=== PATIENT | male | born 1985 | race Caucasian/White ===

== ENCOUNTER 2016-09-28 10:59 | Inpatient (IN) | payer BC, OTHER ==
[~2016-09-28] VITALS: Ht 172.7 cm; Wt 63.5 kg
[2016-09-29] VITALS (7 sets, daily range): BP systolic 134–171; BP diastolic 88–105
--- NOTE | 2016-09-29 02:10 | NUR ---
INTAKE ASSESSMENT BP:171/90, HR: 86, RR:16, SpO2:95%, T:98 Pt is in stable condition and is able to be admitted on the unit. Unit protocols regarding medications, and vital signs every 4 hours were explained. Pt verbalized understanding. Will continue admission process upon arrival on the unit.
--- NOTE | 2016-09-29 02:35 | NUR ---
ADMISSION NOTE CIWA:5. Pt arrived ambulatory from [facility] Intake to the third floor accompanied by a CHEMICAL OPERATOR at 0215. Pt is a 30 year old male who was admitted on 09/29/16 for ETOH dependency. Pt is full code with NKA. He denies any PMHx of seizure. Pt reports a PMHx of anxiety and HTN. Pt denies having a PCP. Pt brought home medications of: 1. Amoxicillin 500 mg capsule TID for abscess of left upper tooth. Pt verbalized that he is here for ETOH withdrawal. This is his first time in detox and is unable to recall the last time he was sober. Pt reports he was in [facility] ER for ETOH intoxication within the last 30 days. He describes his current use as: 1. ETOH vodka 1 /2 gallon daily for 15 years. Last dose: 1500mL on 09/28/16 Pt describes his withdrawal symptoms as: " tremors and nausea " Upon assessment, pt is alert and oriented x4, anxious and cooperative. Speech is clear and audible. Heart rate is regular. Pt denies chest pain or SOB. PERRLA, breathing is even and unlabored, lung sounds clear. Abdomen is soft and non distended, bowel sounds present in all quadrants. Last BM was 09/28/16. Pt reports that BM is regular. Pt's skin is warm, dry and intact. Pt oriented to room and unit. made aware of pt's admission. Pt is safe with bed locked in lowest position, side rails up x2 and call light within reach. Will continue to monitor.
[2016-09-29] MEDS ORDERED: DICYCLOMINE HCL 20 MG TABLET PO PRN (03:00)
[2016-09-29] MEDS ORDERED: LOPERAMIDE HCL 2 MG CAPSULE PO PRN ×2 (03:00)
[2016-09-29] MEDS ORDERED: MAG HYDROX/AL HYDROX/SIMETH 30 ML LIQUID UDC PO PRN (03:00)
[2016-09-29] MEDS ORDERED: IBUPROFEN 400 MG TABLET PO PRN (03:00)
[2016-09-29] MEDS ORDERED: MAGNESIUM HYDROXIDE 30 ML LIQUID UDC PO PRN (03:00)
[2016-09-29] MEDS ORDERED: THIAMINE HCL 200 MG/2 ML VIAL IM ONE (03:00)
[2016-09-29] MEDS ORDERED: LORAZEPAM 2 MG/1 ML VIAL IM PRN (03:00)
[2016-09-29] MEDS ORDERED: MIRALAX 17 GM POWD.PACK PO PRN (03:00)
[2016-09-29] MEDS ORDERED: ONDANSETRON 4 MG/2 ML VIAL IM PRN (03:00)
[2016-09-29] MEDS ORDERED: LORAZEPAM 1 MG TABLET PO PRN ×2 (03:00)
[2016-09-29] MEDS ORDERED: AMOX500C2 PO (03:02)
[2016-09-29] MEDS ORDERED: THIAMINE HCL 200 MG/2 ML VIAL ONE (03:12)
[2016-09-29] MEDS ORDERED: CLONIDINE HCL 0.1 MG TABLET ONE (03:13)
[2016-09-29] MEDS: CLONIDINE HCL 0.1 MG TABLET PO PRN ×2 (03:33→08:57)
--- NOTE | 2016-09-29 03:33 | NUR ---
PRN CLONIDINE Pt complains of anxiety, chills, sweats and pt is also noted with increased BP of 150/105. PRN Clonidine administered as ordered. Breathing is even and unlabored. Safety measures in place. Will monitor effectiveness of medication.
[2016-09-29 03:48] LABS: ALANINE AMINOTRANSFERASE 28 U/L (16-63); ALKALINE PHOSPHATASE 94 U/L (50-136); AMYLASE 77 U/L (25-115); ASPARTATE AMINOTRANSFERASE 31 U/L (15-37); BILIRUBIN,TOTAL 0.5 mg/dL (0.2-1.0); CARBON DIOXIDE 25 mmol/L (21-32); CHLORIDE 102 mmol/L (98-107); CREATININE 0.9 mg/dL (0.6-1.3); GLUCOSE 99 mg/dL (74-106); LIPASE 289 U/L (73-393); MAGNESIUM 1.5 mg/dL (1.8-2.4); POTASSIUM 3.6 mmol/L (3.5-5.1); TOTAL PROTEIN, SERUM 7.6 g/dL (6.4-8.2); UREA NITROGEN, BLOOD 14 mg/dL (7-18)
[2016-09-29 03:55] LABS: THYROID STIMULATING HORMONE 1.373 mIU/mL (0.358-3.740)
[2016-09-29 04:00] LABS: BASOPHILS # (AUTO) 0.1 K/uL (0.0-8.0); BASOPHILS % (AUTO) 1.2 % (0.0-2.0); EOSINOPHILS # (AUTO) 0.1 K/uL (0.0-0.7); EOSINOPHILS % (AUTO) 1.2 % (0.0-7.0); ETHANOL < 3 MG/DL (0-0); HEMATOCRIT 39.6 % (40-50); HEMOGLOBIN 13.9 G/DL (14.0-18.0); LYMPHOCYTES # (AUTO) 1.1 K/UL (0.8-4.8); MEAN CORPUSCULAR HEMOGLOBIN 32.8 UUG (27.0-31.0); MEAN CORPUSCULAR HGB CONC 35 g/dL (32.0-37.0); MEAN CORPUSCULAR VOLUME 93.5 FL (82.0-92.0); MONOCYTES # (AUTO) 0.6 K/UL (0.1-1.30); MONOCYTES % (AUTO) 12.4 % (0.0-11.0); NEUTROPHILS # (AUTO) 2.9 K/UL (1.8-8.9); NEUTROPHILS % (AUTO) 62.2 % (38.5-71.5); PLATELET COUNT (AUTO) 314 K/UL (150-450); RED BLOOD CELL COUNT(AUTO) 4.24 MIL/UL (4.7-6.1); WHITE BLOOD COUNT (AUTO) 4.8 K/UL (4.0-11.2)
[2016-09-29 04:04] LABS: *AMPHETAMINE, URINE NEGATIVE (NEGATIVE); *BARBITURATE, URINE NEGATIVE (NEGATIVE); *CANNABINOID, URINE NEGATIVE (NEGATIVE); *COCCAINE, URINE NEGATIVE (NEGATIVE); *OPIATE, URINE NEGATIVE (NEGATIVE); *PHENCYCLIDINE SCREEN,URINE NEGATIVE (NEGATIVE)
--- NOTE | 2016-09-29 04:33 | NUR ---
PRN CLONIDINE REASSESSMENT PRN medication is effective. Pt is lying in bed with eyes closed resting comfortably. BP decreased 147/90. HR:78. Safety measures in place. Will continue to monitor.
--- NOTE | 2016-09-29 07:05 | NUR ---
END OF SHIFT Pt is a 30 year old male patient admitted on 09/29/16 for ETOH dependency. Pt is full code with NKA. He reports a PMHx of anxiety and HTN. He reports ETOH (vodka) 1/2 gallon daily for 15 years. Last dose was 2 (03/11s) on 09/28/16. He denies a history of seizures. At 0333 pt received PRN Clonidine. He slept a total of 3 hrs, Intake: 500 mL, Void: x1, BM:0, CIWA:6. Pt remains alert and oriented x4, breathing is even and unlabored. Safety measures in place. Endorsed to oncoming shift.
--- NOTE | 2016-09-29 08:05 | NUR ---
START OF SHIFT: RECEIVED PT A/0 X 4 VOMITING INTO RECEPTACLE. HE C/O N/V,ANXIETY AND STOMACH ACHE.PRN ZOFRAN SL GIVEN PRIOR TO AM MED ADMINISTRATION. PT STATES ZOFRAN WAS EFFECTIVE. PRN BENTYL PO GIVEN HE PRESENTS WITH ANXIOUS MOOD AND CONGRUENT AFFECT.CIWA 12 PRN ATIVAN GIVEN. BP ELEVATED PRN CLONIDINE GIVEN. ENCOURAGED INCREASED FLUIDS AT A SLOW AND STEADY PACE. WILL CONTINUE TO MONITOR AND MANAGE S/S OF W/D.
[2016-09-29] MEDS: ONDANSETRON ODT 4 MG TAB.RAPDIS SL PRN ×2 (08:29→21:58)
[2016-09-29] MEDS: THIAMINE HCL 100 MG TABLET PO SCH (08:55)
[2016-09-29] MEDS: FOLIC ACID 1 MG TABLET PO SCH (08:56)
[2016-09-29] MEDS: MULTIVITAMINS,THERAPEUTIC TABLET PO SCH (08:58)
[2016-09-29] MEDS ORDERED: MAGNESIUM OXIDE 400 MG TABLET PO ONE (09:00)
--- NOTE | 2016-09-29 09:15 | NUR ---
PT STATES PRN MEDS WERE EFFECTIVE.
[2016-09-29] MEDS: LORAZEPAM 1 MG TABLET PO SCH ×3 (12:29→21:58)
--- NOTE | 2016-09-29 15:00 | NUR ---
Pt seen and examined by Dr. Boyd
[2016-09-29] MEDS ORDERED: METHOCARBAMOL 750 MG TABLET PO PRN (15:15)
[2016-09-29] MEDS ORDERED: BUPRENORPHINE HCL 2 MG TAB.SUBL SL PRN (15:15)
--- NOTE | 2016-09-29 18:49 | NUR ---
END OF SHIFT: PT STARTED ON ATIVAN TAPER TODAY. HE WAS VOMITING THIS AM AND C/O NAUSEA ,STOMACH PAIN,ANXIETY AND HAD TREMORS TO HANDS. PRN ZOFRAN AND BENTYL GIVEN AND EFFECTIVE. PT IS ODOROUS AND DISHEVELED. ENCOURAGED PT TO SHOWER BUT HE STATES HE DID NOT FEEL UP TO IT. PT WAS COMPLIANT WITH INCREASED FLUIDS. HE RESTED MOST OF SHIFT.WILL PASSS SHIFT REPORT TO ONCOMING NIGHT NURSE.
--- NOTE | 2016-09-29 19:15 | NUR ---
START OF SHIFT Received 30 year old male patient admitted on 09/29/16 for ETOH dependency. Pt is full code with NKA. He reports a PMHX of anxiety and HTN. He reports using ETOH (vodka) 1/2 gallon daily for 15 years. Last dose was on 09/28/16. Pt denies a history of seizure. Per endorsement, pt received PRN Bentyl, Zofran, and Clonidine. Pt was started on 5 day Ativan taper and tolerating well. Pt is alert and oriented x4, breathing is even and unlabored. Safety measures in place. Will continue to monitor.
[2016-09-29] MEDS: diphenhydrAMINE 50 MG CAPSULE PO PRN (21:58)
--- NOTE | 2016-09-29 21:58 | NUR ---
PRN ZOFRAN/BENADRYL Pt complains of nausea with no episode of vomiting and inability to sleep. PRN Zofran and Benadryl administered as ordered. Breathing even and unlabored, safety measures in place. Will monitor effectiveness.
--- NOTE | 2016-09-29 22:58 | NUR ---
PRN ZOFRAN/BENADRYL REASSESSMENT PRN medications effective. Pt is lying in bed with eyes closed noted to be asleep. No facial grimacing. Respirations 16, breathing is even and unlabored. Safety measures in place. Will continue to monitor.
--- NOTE | 2016-09-30 | NUR ---
VITALS REFUSED, CIWA DEFERRED 0000 vitals were refused. CIWA deferred d/t pt lying in bed with eyes closed noted to be asleep. Respirations 16, breathing is even and unlabored. Safety measures in place. Will monitor.
--- NOTE | 2016-09-30 04:00 | NUR ---
VITALS REFUSED, CIWA DEFERRED 0400 vitals were refused. CIWA deferred d/t pt lying in bed with eyes closed noted to be asleep. Respirations 16, breathing is even and unlabored. Safety measures in place. Will continue to monitor.
--- NOTE | 2016-09-30 07:21 | NUR ---
END OF SHIFT Pt is a 30 year old male patient admitted on 09/29/16 for ETOH dependency. Pt is full code with NKA. He reports a PMHX of anxiety and HTN. At 2158 pt received PRN Benadryl and Zofran. Pt continues on 5 day Ativan taper and tolerating well. He slept a total of 10 hrs, Intake:355mL Void: x1 BM: 0CIWA: 6. Pt remains alert and oriented x4, breathing is even and unlabored. Safety measures in place. Endorsed to oncoming shift.
[2016-09-30 08:00] VITALS: BP 123/89
[2016-09-30] MEDS ORDERED: TUBERCULIN,PURIF.PROT.DERIV. 5 TU/0.1 ML TEST ID ONE (09:00)
[2016-09-30] MEDS: LORAZEPAM 1 MG TABLET PO SCH ×3 (09:02→20:19)
[2016-09-30] MEDS: FOLIC ACID 1 MG TABLET PO SCH (09:02)
[2016-09-30] MEDS: MULTIVITAMINS,THERAPEUTIC TABLET PO SCH (09:02)
[2016-09-30] MEDS: THIAMINE HCL 100 MG TABLET PO SCH (09:02)
--- NOTE | 2016-09-30 09:10 | NUR ---
START OF SHIFT Received report from overnight stocker nurse. Patient is 30 year old male admitted for medically supervised withdrawal from alcohol. Patient is full code with NKA. On assessment this AM: CIWA: 7. Denies SOB, chest pain. vitals signs WNL. Reports anxiety, tremors and lightheadedness. Med compliant with AM meds. On 5-day Ativan taper (started 09/29/16). Patient was encouraged to attend group meetings today. Will continue to monitor patient. Addendum: 09/30/16 at 1044 by CLAUDIA ABERNATHY RN PPD performed on LFA today.
[2016-09-30 10:12] LABS: HEPATITIS B SURFACE AG Negative (Negative)
[2016-09-30 12:00] VITALS: BP 140/100
[2016-09-30] MEDS ORDERED: BUPRENORPHINE HCL 2 MG TAB.SUBL SL ONE (12:30)
--- NOTE | 2016-09-30 12:52 | NUR ---
ONE TIME SUBUTEX Patient was given one time order of Subutex 2mg po as ordered. COWS was 7. will continue to monitor patient. Patient will also be re-evaluated by the MD after administration. Addendum: 09/30/16 at 1255 by CLAUDIA ABERNATHY RN medication was given at 12:37pm.
--- NOTE | 2016-09-30 13:07 | NUR ---
REASSESSMENT ONE TIME SUBUTEX Patient's COWS: 5. Patient reports decreased anxiety.
[2016-09-30] MEDS: ACETAMINOPHEN 325 MG TABLET PO PRN (15:09)
[2016-09-30 16:00] VITALS: BP 149/111
[2016-09-30] MEDS: NICOTINE 14 MG/24HR PATCH TD SCH (16:58)
[2016-09-30] MEDS: CLONIDINE HCL 0.1 MG TABLET PO PRN (17:15)
--- NOTE | 2016-09-30 17:15 | NUR ---
PRN CLONIDINE Patient complained of increased anxiety. PRN Clonidine given (BP 148/111, HR 101). Will continue to monitor patient.
--- NOTE | 2016-09-30 18:15 | NUR ---
REASSESSMENT CLONIDINE Patient reports decreased anxiety.
--- NOTE | 2016-09-30 18:35 | NUR ---
MD COMMUNICATION MD was notified about patient's BP. Patient received clonidine for anxiety at 1715 and his BP was 149/111. Recheck of BP after 1 hour was 146/102, HR 97. Patient reports that he was prescribed lisinopril 5 years ago but he stopped taking it when he lost his job. Will continue to monitor patient.
[2016-09-30] MEDS ORDERED: hydrALAZINE HCL 25 MG TABLET PO PRN (18:45)
--- NOTE | 2016-09-30 18:56 | NUR ---
END OF SHIFT Patient is 30 year old male admitted for medically supervised withdrawal from alcohol. Patient is full code with NKA. On 5-day Ativan taper (started 09/29/16). Most recent CIWA: 6 and COWS: 8. Patient reports anxiety, tremors. One time Subutex given as ordered. Patient received nicotine patch, patient verbalized desire for smoking cessation, and understanding that he cannot smoke while using patch. Compliant with routine meds during this shift. PRN Clonidine given for anxiety, effective. MD was notified about patient's BP. Patient's BP before clonidine was given was 149/111, recheck after 1 hours was 146/102. Patient reports that he was prescribed lisinopril 5 years ago but he stopped taking it when he lost his job. Patient tolerating meals without n/v. digital forensics investigatorshift lab technician will continue to monitor patient.
[2016-09-30 20:00] VITALS: BP 160/106
--- NOTE | 2016-09-30 20:00 | NUR ---
Start of Shift PT is a 30 year old male admitted for ETOH dependence, placed on Ativan 5 day taper. Pt reported consuming Vodka 0.5 gallon. Pt also reported use of [place]. PMH: anxiety and HTN, NKA, fall/seizure precautions (denies seizure hx) and full code. Upon assessment, pt presents with anxiety, skin flushed/clammy, tremors visible, runny nose/teary eyes, chills and aches throughout body. Respirations even/unlabored, denies SOB/chest pain, denies n/v/d, bowel sounds active x4, abdomen soft. Safety measures in place, call light within reach, side rails up x2, bed locked and in low position. Will continue to monitor.
--- NOTE | 2016-09-30 20:19 | NUR ---
PRN Administration Hydralazine 25mg PRN administered. BP 160/106, pulse 98, resp 16, SpO2 100% room air, temp 100% room air, no reports of pain 0/[address] Will continue to monitor.
[2016-09-30] MEDS ORDERED: BUPRENORPHINE HCL 2 MG TAB.SUBL SL SCH (21:00)
[2016-09-30 21:25] VITALS: BP 154/111
--- NOTE | 2016-09-30 21:25 | NUR ---
PRN Reassessment BP154/111, pulse 88, resp 14, SpO2 98% room air , temp 98, no pain 0/10 MD aware of BP with no new orders, safety measures in place, will continue to monitor.
[2016-09-30] MEDS ORDERED: LORAZEPAM 1 MG TABLET PO PRN (22:15)
--- NOTE | 2016-09-30 22:18 | NUR ---
MD Communication MD on unit, relayed BP assessment. New order for Hydralazine 50mg PRN Q4H and Ativan 2mg PRN Q4H. MD to put in order when able.
[2016-09-30] MEDS ORDERED: GABAPENTIN 300 MG CAPSULE PO ONE (22:30)
--- NOTE | 2016-09-30 22:40 | NUR ---
PRN Administration CIWA 10, tremors visible, pt is clammy/flushed, pt irritable, lightheaded/dizzy, chills/body aches. Ativan 2mg PRN administered as ordered. Safety measures in place. Will continue to monitor.
[2016-09-30] MEDS ORDERED: GABAPENTIN 300 MG CAPSULE ONE (22:50)
[2016-10-01] VITALS (10 sets, daily range): BP systolic 137–157; BP diastolic 97–113
[2016-10-01] MEDS ORDERED: hydrALAZINE HCL 25 MG TABLET ONE ×2 (00:02→04:34)
[2016-10-01] MEDS: hydrALAZINE HCL 25 MG TABLET PO PRN ×2 (00:07→04:25)
--- NOTE | 2016-10-01 00:07 | NUR ---
PRN Reassessment/Administration WA 7 BP 155/104, pulse 91. Hydralazine 50mg PRN administered as ordered. Safety measures in place. Will continue to monitor.
--- NOTE | 2016-10-01 01:10 | NUR ---
PRN Reassessment BP 146/105, pulse 85, resp 14, SpO2 97% room air, temp 97.9 Pt is sleeping, no s/s of acute distress, resp even/unlabored. Safety measures in place. Will continue to monitor.
--- NOTE | 2016-10-01 04:24 | NUR ---
PRN Administration BP 149/107, pulse 92, resp 18, Spo2 98% room air, temp 98.1 Hydralazine 50mg PRN administered. Safety measures in place. Will continue to monitor.
--- NOTE | 2016-10-01 05:25 | NUR ---
PRN Reassessment BP 148/105, pulse 97. Pt resting in room, respirations even/unlabored. Safety measures in place. Will continue to monitor.
--- NOTE | 2016-10-01 07:00 | NUR ---
End of shift PT is a 30 year old male admitted for ETOH dependence, placed on Ativan 5 day taper. Pt reported consuming Vodka 0.5 gallon. Pt also reported use of [place]. PMH: anxiety and HTN, NKA, fall/seizure precautions (denies seizure hx) and full code. During shift, pt presented with anxiety, skin flushed/clammy, tremors visible, runny nose/teary eyes, chills and aches throughout body scheduled taper medications administered. Hydralazine 25mg PRN administered x1, Hydralazine 50mg PRN administered x2. Ativan 2mg PRN for CIWA 10. Score decreased to CIWA 7 with COWS 6. Latest VS: BP 148/105, pulse 97. Pt slept for 4 hours, intake of 2344 ml PO, voids x4 and stool x2. Safety measures in place, call light within reach, side rails up x2, bed locked and in low position. Endorsed to day shift nurse.
[2016-10-01] MEDS: CLONIDINE HCL 0.1 MG TABLET PO PRN ×2 (08:10→09:51)
--- NOTE | 2016-10-01 08:10 | NUR ---
PRN CLONIDINE Patient complains of inxcreasing anxiety. PRN clonidine given, BP 150/108, HR 98. Will continue to monitor patient.
[2016-10-01] MEDS: NICOTINE 14 MG/24HR PATCH TD SCH (08:11)
[2016-10-01] MEDS: MULTIVITAMINS,THERAPEUTIC TABLET PO SCH (08:11)
[2016-10-01] MEDS: THIAMINE HCL 100 MG TABLET PO SCH (08:11)
[2016-10-01] MEDS: LORAZEPAM 1 MG TABLET PO SCH ×4 (08:11→20:09)
[2016-10-01] MEDS: FOLIC ACID 1 MG TABLET PO SCH (08:11)
[2016-10-01] MEDS ORDERED: hydrALAZINE HCL 50 MG TABLET PO PRN (08:15)
[2016-10-01] MEDS: GABAPENTIN 300 MG CAPSULE PO SCH ×3 (08:17→20:09)
--- NOTE | 2016-10-01 08:26 | NUR ---
START OF SHIFT Received report from reed polisher nurse. Patient is 30 year old male admitted for medically supervised withdrawal from alcohol. Patient is full code with NKA. On assessment this AM: CIWA: 7 and COWS : 6. Denies SOB, chest pain. vitals signs: 150/108, HR 95, Temp 98.4, RR18, 02 sat 98% RA, 3/10 pain. Reports anxiety and low back pain. Med compliant with AM meds. On 5-day Ativan (started 09/29/16) and 5-Day Subutex taper (started 09/30/16). PRN clonidine given. Patient was encouraged to attend group meetings today. Will continue to monitor patient. Addendum: 10/01/16 at 0828 by CLAUDIA ABERNATHY RN Patient refused his nicotine patch, wants to go out for smoke instead. Patient reports he removed his nicotine patch last night.
[2016-10-01] MEDS ORDERED: BUPRENORPHINE HCL 2 MG TAB.SUBL SL SCH (09:00)
--- NOTE | 2016-10-01 09:10 | NUR ---
PRN CLONIDINE Patient reports decreased anxiety.
--- NOTE | 2016-10-01 09:52 | NUR ---
PRN HYDRALAZINE Patient's BP was 157/113. PRN hydralazine given. Will continue to monitor patient.
--- NOTE | 2016-10-01 10:52 | NUR ---
REASSESSMENT PRN HYDRALAZINE Patient's BP 155/109. Will notifiy
[2016-10-01] MEDS: HYDROXYZINE PAMOATE 25 MG CAPSULE PO PRN (10:58)
--- NOTE | 2016-10-01 10:58 | NUR ---
NILDA RODRIGUEZ Patient reports he was having anxiety and panic attack during group activity in the recreation room. He was excused from the group to return to his room. Patient also complains of shakiness. Patient was given Vistaril. Will continue to monitor patient.
--- NOTE | 2016-10-01 11:58 | NUR ---
REASSESSMENT VISTARIL Patient reports anxiety resolved.
[2016-10-01] MEDS ORDERED: AMLODIPINE 5 MG TABLET PO ONE (13:00)
[2016-10-01] MEDS: BUPRENORPHINE HCL 2 MG TAB.SUBL SL SCH ×2 (13:07→20:08)
[2016-10-01] MEDS: CLONIDINE HCL 0.1 MG TABLET PO SCH ×2 (15:07→20:08)
--- NOTE | 2016-10-01 19:00 | NUR ---
Patient is 30 year old male admitted for medically supervised withdrawal from alcohol. Patient is full code with NKA. On Ativan taper (started 09/29/16) and Subutex taper (started 09/30/16). Most recent CIWA:3 and COWS: 5. Patient reports anxiety, tremors. Patient declined nicotine patch, wants to smoke. Compliant with routine meds during this shift. Patient tolerating meals without n/v. PPD to be read on 10/02/16. Patient attending groups. interior assemblies installerroad test examiner will continue to monitor patient.
--- NOTE | 2016-10-01 20:00 | NUR ---
Start of Shift Pt is a 30 year old male admitted for ETOH dependence, placed on Ativan 5 day taper. Pt reported consuming Vodka 0.5 gallon. Pt also reported use of [place]. PMH: anxiety and HTN, NKA, fall/seizure precautions (denies seizure hx) and full code. Upon assessment, pt presents with anxiety, tremors visible, reports feeling fatigue, respirations even/unlabored, denies SOB/chest pain, denies n/v/d, bowel sounds active x4, abdomen soft. Safety measures in place, call light within reach, side rails up x2, bed locked and in low position. Will continue to monitor.
[2016-10-02] VITALS: BP 138/100
[2016-10-02] MEDS: HYDROXYZINE PAMOATE 25 MG CAPSULE PO PRN (00:18)
[2016-10-02] MEDS: diphenhydrAMINE 50 MG CAPSULE PO PRN ×2 (00:18→22:04)
[2016-10-02 04:00] VITALS: BP 139/102
--- NOTE | 2016-10-02 04:00 | NUR ---
Vital Signs BP 139/102, pulse 88, resp 12, SpO2 96% room air, temp 97.8, no reports of pain 0/10 CIWA/COWS deferred d/t pt sleeping - to assess while pt is awake as ordered. Safety measures in place, will continue to monitor.
--- NOTE | 2016-10-02 07:00 | NUR ---
End of Shift PT is a 30 year old male admitted for ETOH dependence, placed on Ativan 5 day taper. Pt reported consuming Vodka 0.5 gallon. Pt also reported use of [place]. PMH: anxiety and HTN, NKA, fall/seizure precautions (denies seizure hx) and full code. During shift, pt presented with anxiety, tremors visible, reports feeling fatigue scheduled taper medications administered, CIWA 6 and COWS 7. No PRN medications administered. Pt slept for 4 hours, intake of 2000 ml PO, voids x2 and stool x0. Safety measures in place, call light within reach, side rails up x2, bed locked and in low position. Endorsed to day shift nurse.
--- NOTE | 2016-10-02 07:15 | NUR ---
Start of Shift Laundry Clerk received report from night clerk auditor on 30 year old male admitted on 09/29/16 for ETOH and [facility] detoxification. Pt is on a 5 day Ativan and modified Subutex taper and is tolerating well. Pt is a full code, with NKA and on a regular diet. Pt reports a PMH of HTN and anxiety. Pt placed on universal, fall and seizure precautions. Laundry Clerk encounters pt in hallway, pt is calm and cooperative and able to make needs known. Pt reports anxiety and is denying any other detox symptoms at this time. No s/s of distress noted. Bed in low position, wheels locked and side rails up x2, with call light within reach. All safety measures in place per hospital policy. Will continue to monitor, support and encourage according to plan of care.
[2016-10-02 08:52] VITALS: BP 149/99
[2016-10-02] MEDS ORDERED: AMLODIPINE 5 MG TABLET PO SCH (09:00)
[2016-10-02] MEDS: LORAZEPAM 1 MG TABLET PO SCH ×3 (10:17→22:06)
[2016-10-02] MEDS: CLONIDINE HCL 0.1 MG TABLET PO SCH (10:17)
[2016-10-02] MEDS: FOLIC ACID 1 MG TABLET PO SCH (10:17)
[2016-10-02] MEDS: GABAPENTIN 300 MG CAPSULE PO SCH ×2 (10:18→16:21)
[2016-10-02] MEDS: THIAMINE HCL 100 MG TABLET PO SCH (10:18)
[2016-10-02] MEDS: MULTIVITAMINS,THERAPEUTIC TABLET PO SCH (10:18)
[2016-10-02] MEDS: NICOTINE 14 MG/24HR PATCH TD SCH (10:19)
[2016-10-02] MEDS: BUPRENORPHINE HCL 2 MG TAB.SUBL SL SCH ×3 (10:19→22:06)
--- NOTE | 2016-10-02 10:53 | NUR ---
Therapist prompted client about group times. Client reported he will go to groups today if he feels well enough.
[2016-10-02 12:28] VITALS: BP 141/106
[2016-10-02] MEDS ORDERED: CLONIDINE HCL 0.1 MG TABLET PO SCH (15:00)
[2016-10-02] MEDS: CLONIDINE HCL 0.2 MG TABLET PO SCH ×2 (16:21→22:05)
--- NOTE | 2016-10-02 16:39 | NUR ---
1500 Medication Tape Deck Installer administered medication late d/t being in therapeutic group. Pt in no distress and no adverse effects. Will continue to monitor, support and encourage according to plan of care.
[2016-10-02 16:51] VITALS: BP 152/94
--- NOTE | 2016-10-02 19:15 | NUR ---
START OF SHIFT Received 30 year old male patient admitted on 09/29/16 for ETOH dependency. Pt is full code with NKA. He reports a PMHx of anxiety and HTN. He reports drinking vodka 1/2 gallon daily for 15 years. Last dose was 2 (03/11) on 09/28/16. Pt placed on 5 day Ativan taper and modified Subutex taper and tolerating well. Per endorsment, pt did not receive or request PRN medications. His clonidine was increased to 0.2 mg d/t increased BP and pt with complains of right ankle pain. Pt is alert and oriented x4, breathing is even and unlabored. Safety measures in place. Will continue to monitor.
--- NOTE | 2016-10-02 19:17 | NUR ---
End of Shift 306 Health Care Attorney provided report to clothes drier assembler on 30 year old male admitted on 09/29/16 for ETOH and [facility] medical detoxification. With no further comments, questions or concerns voiced. Pt is on a 5 day Ativan and modified Subutex taper and is tolerating well. Pt is a full code, with NKA and on a regular diet. Pt reports a PMH of HTN and anxiety. Pt placed on universal, fall and seizure precautions. Pt has been calm and cooperative with a flat affect and depressed mood, makes needs known. Pt complains of right ankle pain, with no signs of redness or swelling noted. Pts gait is steady and pt is able to flex foot and place weight on it. No s/s of distress noted. Bed in low position, wheels locked and side rails up x2, with call light within reach. All safety measures in place per hospital policy.
[2016-10-02 20:00] VITALS: BP 139/91
[2016-10-02] MEDS ORDERED: GABAPENTIN 300 MG CAPSULE PO SCH (21:00)
--- NOTE | 2016-10-02 22:04 | NUR ---
PRN BENADRYL Pt complains of inability to sleep. PRN Benadryl administered as ordered. Breathing is even and unlabored, safety measures in place. Will monitor effectiveness.
[2016-10-02] MEDS: IBUPROFEN 600 MG TABLET PO PRN (22:06)
--- NOTE | 2016-10-02 22:06 | NUR ---
PRN MOTRIN Pt complains of right ankle pain. Right ankle noted to be swollen. Pt states " I suddenly felt pain while walking earlier today." Right foot elevated, cold compress applied to right ankle. PRN Motrin administered as ordered for pain. Will monitor effectiveness of medication.
--- NOTE | 2016-10-02 23:04 | NUR ---
PRN BENADRYL REASSESSMENT PRN medication effective. Pt lying in bed with eyes closed noted to be asleep. Respirations 16, breathing is even and unlabored. Safety measures in place. Will continue to monitor.
--- NOTE | 2016-10-02 23:06 | NUR ---
PRN MOTRIN REASSESSMENT PRN medication effective. Pt lying in bed with eyes closed noted to be asleep. Respirations 16, breathing even and unlabored, safety measures in place. Will monitor.
--- NOTE | 2016-10-03 | NUR ---
VITALS REFUSED/COWS, CIWA DEFERRED 0000 vitals refused. COWS and CIWA deferred d/t pt lying in bed with eyes closed noted to be asleep. Respirations 16, breathing is even and unlabored. Safety measures in place. Will monitor.
--- NOTE | 2016-10-03 04:00 | NUR ---
VITALS REFUSED/COWS, CIWA DEFERRED 0400 vitals refused. COWS and CIWA deferred d/t pt lying in bed with eyes closed noted to be asleep. Respirations 16, breathing is even and unlabored. Safety measures in place. Will monitor.
--- NOTE | 2016-10-03 06:54 | NUR ---
END OF SHIFT Pt is a 30 year old male patient admitted on 09/29/16 for ETOH dependency. Pt is full code with NKA. He reports a PMHx of anxiety and HTN. Pt continues on 5 day Ativan taper and modified Subutex taper and tolerating well. At 2206 he received PRN Motrin for right ankle pain. Right ankle was elevated and cold compress applied. He slept a total of 6 hrs, Intake: 473mL, Void:x2, BM:0, COWS:5, CIWA:4. Pt remains alert and oriented x4, breathing is even and unlabored. Safety measures in place. Endorsed to oncoming shift.
--- NOTE | 2016-10-03 07:30 | NUR ---
Start of shift note; Received report from night nurse. Patient is a 30 year old male admitted on 09/29/16 for ETOH/Opiate withdrawals. Patient was placed on a 5 day Ativan taper and Modified Subutex taper. Patient reported history of anxiety and hypertension. NKA, on full code status and regular diet. Patient slept for 6 hours. Per endorsement, right ankle noted to be slightly swollen, right leg was elevated and was effective. Patient able to walk, will closely monitor patient. Patient is currently resting with eyes closed, respirations even and unlabored. Safety measures secured. Will continue to monitor patient.
[2016-10-03 08:00] VITALS: BP 115/78
[2016-10-03] MEDS: FOLIC ACID 1 MG TABLET PO SCH (08:22)
[2016-10-03] MEDS: GABAPENTIN 300 MG CAPSULE PO SCH ×3 (08:22→21:25)
[2016-10-03] MEDS: CLONIDINE HCL 0.2 MG TABLET PO SCH ×3 (08:22→21:24)
[2016-10-03] MEDS: AMLODIPINE 10 MG TABLET PO SCH (08:22)
[2016-10-03] MEDS: THIAMINE HCL 100 MG TABLET PO SCH (08:22)
[2016-10-03] MEDS: MULTIVITAMINS,THERAPEUTIC TABLET PO SCH (08:22)
[2016-10-03] MEDS: BUPRENORPHINE HCL 2 MG TAB.SUBL SL SCH ×2 (08:23→21:25)
[2016-10-03] MEDS: NICOTINE 14 MG/24HR PATCH TD SCH (08:25)
[2016-10-03] MEDS ORDERED: BUPRENORPHINE HCL 2 MG TAB.SUBL SL SCH (09:00)
[2016-10-03] MEDS ORDERED: LORAZEPAM 1 MG TABLET PO SCH (09:00)
[2016-10-03] MEDS ORDERED: AMLODIPINE 5 MG TABLET PO SCH (09:00)
--- NOTE | 2016-10-03 10:15 | NUR ---
MD communication; MD on unit. Report given to MD, right ankle still noted to be slightly swollen with light redness, patient able to walk. Right ankle elevated to reduce swelling. MD to evaluate patient's right leg/ankle during rounds per MD.
[2016-10-03 12:00] VITALS: BP 125/84
[2016-10-03] MEDS: HYDROXYZINE PAMOATE 25 MG CAPSULE PO PRN (12:00)
--- NOTE | 2016-10-03 12:06 | NUR ---
MD order; MD evaluated patient, no s/s of fractures. Sprained right ankle noted per MD. Right ankle to remain elevated, DIO bandage for support applied per MD order. No Xray needed per MD. Will continue to monitor patient. Patient appears to be anxious and agitated, PRN Vistaril 50mg PO given for anxiety. Will continue to monitor patient.
--- NOTE | 2016-10-03 13:06 | NUR ---
Re-assessment; Patient is calm and comfortable at this time. PRN medication is effective.
[2016-10-03] MEDS: LORAZEPAM 1 MG TABLET PO SCH ×2 (15:08→21:24)
[2016-10-03] MEDS: KETOROLAC TROMETHAMINE 30 MG INJ IM PRN (15:13)
--- NOTE | 2016-10-03 15:13 | NUR ---
PRN medication; Patient is complaining of right ankle pain rated 9/10. PRN Toradol 30mg IM given on left deltoid area for severe pain. Will continue to monitor patient for effectiveness of medication.
[2016-10-03 16:00] VITALS: BP 114/72
--- NOTE | 2016-10-03 16:13 | NUR ---
Re-assessment; Patient's pain decrease from 9 to 4/10. PRN Toradol is effective.
--- NOTE | 2016-10-03 18:17 | NUR ---
End of shift note; Patient is AOX4. Patient is a 30 year old male admitted on 09/29/16 for ETOH/Opiate withdrawals. Patient was placed on a 5 day Ativan taper and Modified Subutex taper. Patient reported history of anxiety and hypertension. NKA, on full code status and regular diet. Patient remained compliant with treatment plan and medication regime. Medications were effective in reducing withdrawal symptoms. All safety measures secured. Met all needs.
[2016-10-03 20:00] VITALS: BP 124/85
--- NOTE | 2016-10-03 20:00 | NUR ---
START OF SHIFT Received report from day shift nurse. Pt attended a group meeting and returned to his room after. He is a 30 yo male admitted to [facility] on 09/29 for ETOH dependence. He is A&O and ambulatory with a slight limp r/t left sprained ankle. He has a PMH of HTN and anxiety. On admission he reported drinking vodka 1/2 gallon per day and using hydrocodone 20mg per day. He started a 5 day Ativan taper on 09/29 and modified subutex taper on 10/01. Pt reports body aches, left ankle pain, anxiety and has tremors that can be felt. Tapers due tonight. Fall and seizure precautions ordered. Bed is down with call light in reach. Addendum: 10/04/16 at 0353 by JOEY TEIXEIRA RN Correction: Pt has a right ankle sprain.
[2016-10-03] MEDS: diphenhydrAMINE 50 MG CAPSULE PO PRN (21:25)
[2016-10-03] MEDS: IBUPROFEN 600 MG TABLET PO PRN (21:26)
--- NOTE | 2016-10-03 21:26 | NUR ---
PRN Motrin administration Pt reports left ankle pain 08/14 and body aches. PRN Motrin administered. Addendum: 10/04/16 at 0354 by JOEY TEIXEIRA RN Correction: Ankle sprain is on the right.
--- NOTE | 2016-10-03 21:26 | NUR ---
PRN Benadryl administration Pt reports inability to sleep. PRN Benadryl administered.
--- NOTE | 2016-10-03 22:26 | NUR ---
PRN Motrin and Benadryl reassessment PRN Motrin effective. Pt's pain level is reduced to 3/10. Pt is not yet asleep but states he feels tired and will try to sleep. Encouraged relaxation.
[2016-10-04] VITALS: BP 127/76
--- NOTE | 2016-10-04 04:00 | NUR ---
0400 Vitals refused/COWS and CIWA deferred Pt refused to be woken for 0400 Vitals. He is lying in bed resting with eyes closed. Respirations even and unlabored. COWS and CIWA ordered Q4HWA. Safety measures in place.
--- NOTE | 2016-10-04 07:05 | NUR ---
END OF SHIFT Report provided to day shift nurse. Pt is lying in bed resting. He is a 30 yo male admitted to [facility] on 09/29 for ETOH dependence. He is A&O and ambulatory with a slight limp r/t right sprained ankle. He has a PMH of HTN and anxiety. On admission he reported drinking vodka 1/2 gallon per day and using hydrocodone 20mg per day. 5 day Ativan taper was started on 09/29 and modified subutex taper started on 10/01. B/P remained within normal limits. PRN Benadryl and Motrin administered. Last COWS 2 and CIWA 3. He drank 1298mL and slept for 6 hours. Fall and seizure precautions ordered. Bed is down with call light in reach.
--- NOTE | 2016-10-04 07:20 | NUR ---
START OF SHIFT NOTE Received report from night nurse, 30 year old male admitted on 09/29/16 for ETOH/Opiate withdrawal. Pt was placed on a 5 day Ativan taper and Modified Subutex taper. Pt reported PMH of anxiety and hypertension. Per endorsement right ankle noted to be slightly swollen, right leg was elevated and was effective and also pt was given PRN Motrin/Benadryl,slept for 6 hours,Last COWS-2, CIWA-3. Currently pt is resting with eyes closed, responsive to verbal and tactile stimuli. Breathing normal no SOB noted, respirations even and unlabored. Safety measures in placed, call light within reach. Will cont to monitor.
[2016-10-04 08:00] VITALS: BP 129/87
[2016-10-04] MEDS: FOLIC ACID 1 MG TABLET PO SCH (08:35)
[2016-10-04] MEDS: THIAMINE HCL 100 MG TABLET PO SCH (08:35)
[2016-10-04] MEDS: MULTIVITAMINS,THERAPEUTIC TABLET PO SCH (08:35)
[2016-10-04] MEDS: CLONIDINE HCL 0.2 MG TABLET PO SCH ×3 (08:35→20:20)
[2016-10-04] MEDS: GABAPENTIN 300 MG CAPSULE PO SCH (08:35)
[2016-10-04] MEDS: AMLODIPINE 10 MG TABLET PO SCH (08:36)
[2016-10-04] MEDS: NICOTINE 14 MG/24HR PATCH TD SCH ×2 (08:36→22:38)
[2016-10-04] MEDS ORDERED: BUPRENORPHINE HCL 2 MG TAB.SUBL SL SCH (09:00)
[2016-10-04] MEDS ORDERED: LORAZEPAM 1 MG TABLET PO SCH (09:00)
[2016-10-04 12:00] VITALS: BP 132/85
--- NOTE | 2016-10-04 13:15 | NUR ---
PT EVAL Pt was seen and evaluated by PT with recommendation to use FWW.
[2016-10-04] MEDS: IBUPROFEN 600 MG TABLET PO PRN (13:25)
--- NOTE | 2016-10-04 13:25 | NUR ---
PRN MOTRIN Pt c/o of right ankle pain 07/14. Administered Motrin 600mg Po as ordered. Will cont to monitor.
[2016-10-04 13:28] LABS: *AMPHETAMINE, URINE NEGATIVE (NEGATIVE); *BARBITURATE, URINE NEGATIVE (NEGATIVE); *CANNABINOID, URINE NEGATIVE (NEGATIVE); *COCCAINE, URINE NEGATIVE (NEGATIVE); *OPIATE, URINE NEGATIVE (NEGATIVE); *PHENCYCLIDINE SCREEN,URINE NEGATIVE (NEGATIVE)
--- NOTE | 2016-10-04 14:25 | NUR ---
REASSESSMENT Upon reassessment pt reported medication effective pain decreased to 2/10.
[2016-10-04] MEDS: GABAPENTIN 400 MG CAPSULE PO SCH ×2 (14:30→20:21)
--- NOTE | 2016-10-04 15:26 | NUR ---
CARE ENDORSED All pertinent information given and care endorsed to nurse in charge.
--- NOTE | 2016-10-04 15:27 | NUR ---
ASSUMED CARE assumed care for patient from primary nurse, all pertinent information discussed. will continue to monitor closely. safety measures in place.
[2016-10-04] MEDS ORDERED: METH-406 PO (16:26)
[2016-10-04] MEDS ORDERED: DIPH50CA37 PO (16:26)
[2016-10-04] MEDS ORDERED: CLON0.2T12 PO (16:26)
[2016-10-04] MEDS ORDERED: GABA-536 PO (16:26)
[2016-10-04] MEDS ORDERED: DICY20TA28 PO (16:26)
[2016-10-04] MEDS ORDERED: HYDR-3895 PO (16:26)
[2016-10-04] MEDS ORDERED: AMLO10TA2 PO (16:26)
[2016-10-04] MEDS ORDERED: IBUP-1955 PO (16:26)
[2016-10-04 17:35] VITALS: BP 108/72
[2016-10-04] MEDS: HYDROXYZINE PAMOATE 25 MG CAPSULE PO PRN (18:30)
[2016-10-04] MEDS: ACETAMINOPHEN 325 MG TABLET PO PRN (18:30)
--- NOTE | 2016-10-04 18:30 | NUR ---
PRN VISTARIL/TYLENOL Patient c/o increase in anxiety and pain 6/10 to right leg, administered Vistaril and Tylenol as ordered, will monitor effectiveness of medication, endorsed to resistor testing machine operator nurse to monitor effectiveness of medication.
--- NOTE | 2016-10-04 19:09 | NUR ---
END OF SHIFT Patient alert and oriented x4, vital signs stable during shift. Patient compliant with therapeutic plan of care. Admitting Dx: etoh dependence, Patient completed 5 day Ativan taper And modified Subutex taper, well tolerated, no ASE noted. 1700 assessment patient presented with: heart rate of 96, mild bone and joint aches, tremors that can be felt but not seen, and mild anxiety with cow score of: 4. PRN Motrin was administered by primary nurse, medication was effective as per nurse. Administered: Vistaril and Tylenol, endorsed to system architect nurse to follow up on effectiveness of medication. Patient is scheduled to be discharged tomorrow, noted self motivated towards sobriety. Patient encouraged to attend group/therapy sessions to learn new coping skills to prevent relapse, denies SI/HI. Patient compliant with plan of care during shift. Safety measures in place. call light kept with in reach. Patient endorsement report given to system architect nurse, all pertinent information discussed. safety measures in place. will continue to monitor.
[2016-10-04 20:00] VITALS: BP 131/87
--- NOTE | 2016-10-04 20:05 | NUR ---
START OF SHIFT Received report from day shift nurse. Pt attended a group meeting and returned to his room after. He is a 30 yo male admitted to [facility] on 09/29 for ETOH dependence. He is A&O and ambulatory with a slight limp r/t right sprained ankle. He has a PMH of HTN and anxiety. On admission he reported drinking vodka 1/2 gallon per day and using hydrocodone 20mg per day. He completed a 5 day Ativan taper and modified subutex taper today. He is scheduled for discharge tomorrow. Pt reports right ankle pain, right side tooth pain, and anxiety. Fall and seizure precautions ordered. Bed is down with call light in reach. Addendum: 10/05/16 at 0218 by JOEY TEIXEIRA RN Correction: Pt did not attend a group meeting. He was lying in bed resting.
--- NOTE | 2016-10-04 20:06 | NUR ---
PRN Vistaril and Tylenol reassessment PRN Vistaril effective. Pt reports feeling more relaxed and states that he was able to take a nap. PRN Tylenol mildly effective at reducing right leg/ankle pain. Pt reports that his tooth pain 8/10 is currently a distraction from the ankle pain.
[2016-10-04] MEDS: KETOROLAC TROMETHAMINE 30 MG INJ IM PRN (20:22)
--- NOTE | 2016-10-04 20:23 | NUR ---
PRN Toradol Pt reports tooth pain 10/14. PRN Toradol administered.
--- NOTE | 2016-10-04 20:53 | NUR ---
PRN Toradol reassessment PRN Toradol effective. Pt reports that tooth pain is relieved.
[2016-10-04] MEDS: diphenhydrAMINE 50 MG CAPSULE PO PRN (23:40)
--- NOTE | 2016-10-04 23:41 | NUR ---
PRN Benadryl administration Pt reports inability to sleep. PRN Benadryl administered.
[2016-10-05] VITALS: BP 104/72
--- NOTE | 2016-10-05 00:41 | NUR ---
PRN Benadryl reassessment PRN Benadryl not yet effective. Pt has not been able to fall asleep.
[2016-10-05] MEDS: HYDROXYZINE PAMOATE 25 MG CAPSULE PO PRN (01:12)
--- NOTE | 2016-10-05 01:13 | NUR ---
PRN Vistaril Pt reports the inability to relax and fall asleep. PRN Vistaril administered.
--- NOTE | 2016-10-05 02:13 | NUR ---
PRN Vistaril reassessment PRN Vistaril effective. Pt is relaxed in bed with eyes closed. Respirations even and unlabored. Safety measures in place.
--- NOTE | 2016-10-05 04:00 | NUR ---
0400 Vitals refused/CIWA deferred Pt refused to be woken for 0400 vitals. He is lying in bed resting. Respirations even and unlabored. CIWA ordered Q4HWA. Safety measures in place.
--- NOTE | 2016-10-05 07:15 | NUR ---
END OF SHIFT Report provided to day shift nurse. Pt is lying in bed resting. He is a 30 yo male admitted to [facility] on 09/29 for ETOH dependence. He is A&O and ambulatory with a slight limp r/t right sprained ankle. Pt has a PMH of HTN, anxiety, and right sprained ankle. He currently has tooth pain. On admission he reported drinking vodka 1/2 gallon per day and using hydrocodone 20mg per day. He completed a 5 day Ativan taper and modified subutex taper yesterday. He is scheduled for discharge today. PRN Toradol, Benadryl, and Vistaril administered. Pt requested nicotine patch before bed. Last CIWA was 2 and COWS 3. He drank 1500mL and slept for 5 hours. Fall and seizure precautions ordered. Bed is down with call light in reach.
--- NOTE | 2016-10-05 07:30 | NUR ---
START OF SHIFT Received report from cage shift manager nurse. Pt is a 30 year old male admitted to [facility] on 09/29/16 for ETOH and opiate dependence. Pt is A/O x4, primary medical history of depression, anxiety/ Pt s/s of withdrawal were managed with ordered medications. Pt has completed 5 day Ativan taper and modified Subutex taper. Pt is medically cleared for d/c, pt is aware and states he is ready. Pt has NKA, Full code, and regular diet. Pt remains safe throughout hospitalization. Pt ambulates with steady gait at this time. PRN Benadryl, Vistaril, Toradol administered and effective. Pt does not present with acute s/s of withdrawal at this time. Pt remains calm, compliant and cooperative with care at this time. Most recent COWS are 3, CIWA 2. V/S remain WNL. Pt slept for 6 hours. Breathing even and unlabored, pt safe with bed locked in lowest position, side rails up x2 and call light within reach. Will continue to monitor.
[2016-10-05 08:15] VITALS: BP 125/81
[2016-10-05] MEDS: GABAPENTIN 400 MG CAPSULE PO SCH (08:15)
[2016-10-05 08:16] VITALS: BP 125/81
[2016-10-05] MEDS: CLONIDINE HCL 0.2 MG TABLET PO SCH (08:16)
[2016-10-05] MEDS: THIAMINE HCL 100 MG TABLET PO SCH (08:16)
[2016-10-05] MEDS: MULTIVITAMINS,THERAPEUTIC TABLET PO SCH (08:16)
[2016-10-05] MEDS: AMLODIPINE 10 MG TABLET PO SCH (08:16)
[2016-10-05] MEDS: FOLIC ACID 1 MG TABLET PO SCH (08:16)
[2016-10-05] MEDS: IBUPROFEN 600 MG TABLET PO PRN (09:08)
--- NOTE | 2016-10-05 09:08 | NUR ---
PRN IBUPROFEN Pt c/o of 05/14 toothache, PRN Motrin administered as ordered.
--- NOTE | 2016-10-05 09:15 | NUR ---
D/C NOTE Pt is A/O x4. V/S remain WNL. Pt denies SI/HI or hallucinations. Pt shows no s/s of acute withdrawal at this time, and is stable. MD has medically cleared pt for d/c. Education on Hepatitis C, smoking cessation and medication side effects provided. Pt verbalizes understanding. All pt belongings are in belonging bag, including prescriptions, and home medications. Refuses PNU vaccination. Pt is being accompanied by [employer] at this time to be transported to rehab. All needs met.
== END 2016-10-05 09:15 | DRG 895 ==
LOC: SRC 09-29 01:45
PROVIDERS: ADMIT Internal Medicine; ATTEND Internal Medicine
PROC: HZ2ZZZZ Detoxification Services for Substance Abuse Treatment (ICD-10-PCS; principal; 2016-09-29)
PROC: HZ41ZZZ Group Counseling for Substance Abuse Treatment, Behavioral (ICD-10-PCS; 2016-10-01)
PROC: HZ31ZZZ Individual Counseling for Substance Abuse Treatment, Behavioral (ICD-10-PCS; 2016-10-02)
DX: F10.230 Alcohol dependence with withdrawal, uncomplicated (principal); F11.23 Opioid dependence with withdrawal; Y90.0 Blood alcohol level of less than 20 mg/100 ml; E83.42 Hypomagnesemia; Z81.1 Family history of alcohol abuse and dependence; Z82.49 Family history of ischemic heart disease and other diseases of the circulatory system; Z81.3 Family history of other psychoactive substance abuse and dependence; F41.9 Anxiety disorder, unspecified; F17.210 Nicotine dependence, cigarettes, uncomplicated; I15.9 Secondary hypertension, unspecified; D53.9 Nutritional anemia, unspecified; S93.402A Sprain of unspecified ligament of left ankle, initial encounter; X50.1XXA Overexertion from prolonged static or awkward postures, initial encounter; Y93.9 Activity, unspecified; Y92.239 Unspecified place in hospital as the place of occurrence of the external cause; K04.7 Periapical abscess without sinus; Y93.01 Activity, walking, marching and hiking
CPT/HCPCS: 36415; 70030-TC; 80307; 83690; 83735; 84443; 85025; 86580; 86592; 86705; 86803; 87340; 87806; 97161; G0480; J1885; J3411; Q0162; Q0163